=== PATIENT | female | born 1960 | race Hispanic/Latino ===

== ENCOUNTER → 2018-08-02 | Outpatient (CLI) | payer OTHER | END | disposition home or self-care (01) | LOC: OIH 13:57 | PROVIDERS: ATTEND Internal Medicine | DX: M13.862 Other specified arthritis, left knee (principal) | CPT/HCPCS: 73560 ==

== ENCOUNTER → 2020-10-01 | Outpatient (CLI) | payer OTHER ==
[~2020-10-01] VITALS: Ht 22.9 cm; Wt 140.6 kg
== END | disposition home or self-care (01) ==
LOC: DTH 10:37
PROVIDERS: ATTEND Surgery
DX: E66.01 Morbid (severe) obesity due to excess calories (principal); I10 Essential (primary) hypertension; E78.00 Pure hypercholesterolemia, unspecified; K76.0 Fatty (change of) liver, not elsewhere classified
CPT/HCPCS: 97802

== ENCOUNTER → 2020-12-20 | Outpatient (CLI) | payer OTHER | END | disposition home or self-care (01) | LOC: DTH 12:42 | PROVIDERS: ATTEND Surgery | DX: E66.01 Morbid (severe) obesity due to excess calories (principal); E78.00 Pure hypercholesterolemia, unspecified; K76.0 Fatty (change of) liver, not elsewhere classified; I10 Essential (primary) hypertension | CPT/HCPCS: 97803 ==

== ENCOUNTER 2021-02-10 08:00 | Inpatient (IN) | payer OTHER ==
[2021-02-06 10:25] VITALS: BP 152/66
[2021-02-06 10:45] LABS: BASOPHILS % (AUTO) 0.5 % (0.0-5.0); EOSINOPHILS % (AUTO) 1.2 % (0.0-8.0); HEMATOCRIT 43.1 % (36-48); LYMPHOCYTES % (AUTO) 20.7 % (21.0-51.0); MEAN CORPUSCULAR HEMOGLOBIN 30.3 pg (27.0-33.0); MEAN CORPUSCULAR HGB CONC 33.2 g/dL (32.0-36.0); MEAN CORPUSCULAR VOLUME 91.3 fL (79-99); MONOCYTES % (AUTO) 4.9 % (3.0-13.0); NEUTROPHILS % (AUTO) 72.4 % (40.0-77.0); PLATELET COUNT (AUTO) 305 K/uL (130-400); RED BLOOD CELL COUNT(AUTO) 4.72 MIL/uL (4.00-5.50); RED CELL DISTRIBUTION WIDTH 12.4 % (11.0-15.5); WHITE BLOOD COUNT (AUTO) 10.2 K/uL (4.8-10.8)
[2021-02-06 11:03] LABS: CREATININE 0.7 mg/dL (0.5-1.5); POTASSIUM 3.4 mmol/L (3.5-5.1)
[2021-02-06 11:48] LABS: INR 1.02 (0.85-1.15); PROTHROMBIN TIME 11.1 SEC (9.6-11.6)
[~2021-02-10] VITALS: Ht 144.8 cm; Wt 133.1 kg
[~2021-02-10 08:00] MED LIST: ACET650T24 PO; CHOL500051 PO; CYAN250010 PO; HYDR-4153 PO; LEVO25TA85 PO; ROSU5TAB12 PO
[2021-02-11] VITALS (24 sets, daily range): BP systolic 114–164; BP diastolic 57–85
[2021-02-11] MEDS ORDERED: CEFOXITIN SODIUM 1 GM VIAL ONE (07:25)
[2021-02-11] MEDS ORDERED: LACTATED RINGERS 1000ML 1,000 ML IV ONE (07:25)
[2021-02-11] MEDS: CEFOXITIN SODIUM 2 GM VIAL IVP SCH ×2 (07:43→08:49)
[2021-02-11] MEDS ORDERED: ROCURONIUM BROMIDE 10MG/1ML 5ML VL ONE (07:48)
[2021-02-11] MEDS ORDERED: LIDOCAINE PF 100MG/5ML (2%) SYRINGE 5ML ONE ×2 (07:48→10:13)
[2021-02-11] MEDS ORDERED: SUCCINYLCHOLINE 200MG/10ML SYR ONE (07:48)
[2021-02-11] MEDS ORDERED: FENTANYL CITRATE PF 50 MCG/1 ML 2ML VIAL ONE (07:49)
[2021-02-11] MEDS ORDERED: PROPOFOL 10 MG/ML 20ML VIAL IV ONE (07:49)
[2021-02-11] MEDS ORDERED: MEPERIDINE-PF 25 MG/ML SYG ONE ×3 (07:49→11:00)
[2021-02-11] MEDS ORDERED: BUPIVACAINE/PF 0.5% 30ML VIAL ONE (07:54)
[2021-02-11] MEDS ORDERED: GLYCOPYRROLATE 1 MG/5 ML SYRINGE ONE (08:47)
[2021-02-11] MEDS ORDERED: KETOROLAC 30MG VIAL (30MG/ML) ONE (10:02)
[2021-02-11] MEDS ORDERED: ONDANSETRON 4MG INJ ONE ×2 (10:02→10:46)
[2021-02-11] MEDS ORDERED: NEOSTIGMINE 5MG/5ML SYR IV ONE (10:12)
[2021-02-11] MEDS ORDERED: MORPHINE 5 MG/ML VIAL (5MG OR GREATER DOSE) IVP PRN (10:30)
[2021-02-11] MEDS: LACTATED RINGERS 1000ML 1,000 ML IV SCH ×2 (10:30→19:12)
[2021-02-11] MEDS: ONDANSETRON 4MG INJ IVP PRN ×2 (11:28→19:00)
[2021-02-11] MEDS ORDERED: BIOTIN PO (14:15)
[2021-02-11] MEDS ORDERED: MULT-305 PO (14:15)
[2021-02-11] MEDS: CEFAZOLIN SODIUM 1 GM VIAL IVP SCH ×2 (14:52→23:00)
[2021-02-11] MEDS ORDERED: CEFAZOLIN SODIUM 1 GM VIAL ONE (20:37)
[2021-02-11] MEDS: FAMOTIDINE 20MG VIAL IV SCH (21:03)
[2021-02-11] MEDS: ENOXAPARIN SODIUM 30 MG/0.3 ML SQ SCH (21:04)
[2021-02-11] MEDS: KETOROLAC 30MG VIAL (30MG/ML) IV PRN (21:32)
[2021-02-12 04:42] VITALS: BP 125/68
[2021-02-12 04:52] LABS: BASOPHILS % (AUTO) 0.4 % (0.0-5.0); EOSINOPHILS % (AUTO) 0.1 % (0.0-8.0); HEMATOCRIT 36.3 % (36-48); LYMPHOCYTES % (AUTO) 21.7 % (21.0-51.0); MEAN CORPUSCULAR HEMOGLOBIN 30.1 pg (27.0-33.0); MEAN CORPUSCULAR HGB CONC 33.6 g/dL (32.0-36.0); MEAN CORPUSCULAR VOLUME 89.6 fL (79-99); MONOCYTES % (AUTO) 6.2 % (3.0-13.0); NEUTROPHILS % (AUTO) 71.1 % (40.0-77.0); PLATELET COUNT (AUTO) 292 K/uL (130-400); RED BLOOD CELL COUNT(AUTO) 4.05 MIL/uL (4.00-5.50); RED CELL DISTRIBUTION WIDTH 12.6 % (11.0-15.5); WHITE BLOOD COUNT (AUTO) 10.5 K/uL (4.8-10.8)
[2021-02-12 05:07] LABS: CREATININE 0.7 mg/dL (0.5-1.5)
[2021-02-12 05:10] LABS: POTASSIUM 2.8 mmol/L (3.5-5.1)
[2021-02-12] MEDS: LACTATED RINGERS 1000ML 1,000 ML IV SCH ×3 (06:03→17:37)
[2021-02-12 08:03] VITALS: BP 141/78
[2021-02-12] MEDS ORDERED: HYDRALAZINE 25MG TABLET PO SCH (09:00)
[2021-02-12] MEDS ORDERED: LIDOCAINE HCL-MPF 1% 2ML VIAL IV PRN (10:30)
[2021-02-12 10:39] VITALS: BP 146/75
[2021-02-12] MEDS: POTASSIUM CHLORIDE 20MEQ/100ML 100 ML IV PRN ×2 (10:43→13:57)
[2021-02-12] MEDS: FAMOTIDINE 20MG VIAL IV SCH (11:06)
[2021-02-12] MEDS: ENOXAPARIN SODIUM 30 MG/0.3 ML SQ SCH (11:06)
[2021-02-12 15:24] VITALS: BP 147/90
[2021-02-12] MEDS: KETOROLAC 30MG VIAL (30MG/ML) IV PRN (18:54)
== END 2021-02-12 19:40 | disposition home or self-care (01) | DRG 621 ==
LOC: DAHIP 02-11 06:54 → 4BH 02-11 11:39
PROVIDERS: ADMIT Surgery; ATTEND Surgery
PROC: 0D164ZA Bypass Stomach to Jejunum, Percutaneous Endoscopic Approach (ICD-10-PCS; principal; 2021-02-11 08:26)
PROC: 0DJ08ZZ Inspection of Upper Intestinal Tract, Via Natural or Artificial Opening Endoscopic (ICD-10-PCS; 2021-02-11 08:26)
DX: E66.01 Morbid (severe) obesity due to excess calories (principal); Z68.44 Body mass index [BMI] 60.0-69.9, adult; Z20.822 Contact with and (suspected) exposure to COVID-19; Z88.8 Allergy status to other drugs, medicaments and biological substances
CPT/HCPCS: 36415; 43235; 71045; 80048; 84132; 85025; 85610; 85730; 86850; 86900; 86901; 87635; 93005; G0378; J0330; J0690; J0694; J1650; J1885; J2001; J2175; J2270; J2405; J2704; J2710; J3010; J3480; J3490; J7030; J7120

== ENCOUNTER 2021-05-20 06:38 | Day surgery (SDC) | payer OTHER ==
[2021-05-20] VITALS (8 sets, daily range): BP systolic 96–126; BP diastolic 50–76
[~2021-05-20] VITALS: Ht 142.2 cm; Wt 104.3 kg
[~2021-05-20 06:38] MED LIST changes: +BIOTIN PO; +MULT-305 PO
[2021-05-20] MEDS ORDERED: 0.9%NACL 1000ML 1,000 ML IV ONE (07:17)
[2021-05-20] MEDS ORDERED: PROPOFOL 10 MG/ML 20ML VIAL IV ONE (08:13)
== END 2021-05-20 08:50 | disposition home or self-care (01) ==
LOC: ENDO 06:38 → DAH 06:38 → ENDO 08:50
PROVIDERS: ATTEND Surgery
DX: R13.10 Dysphagia, unspecified (principal); K21.9 Gastro-esophageal reflux disease without esophagitis; I10 Essential (primary) hypertension; E03.9 Hypothyroidism, unspecified; M19.90 Unspecified osteoarthritis, unspecified site; Z98.84 Bariatric surgery status; Z79.899 Other long term (current) drug therapy; Z20.822 Contact with and (suspected) exposure to COVID-19
CPT/HCPCS: 43239; 87635; 88305; 88342; A4215 ×2; A4221; A4222; A4223; A4606; A4620; A4663; C9803; J2704; J7030

== ENCOUNTER 2022-11-16 10:24 | Inpatient (IN) | payer OTHER, MEDICARE ==
[~2022-11-16] VITALS: Ht 144.8 cm; Wt 72.8 kg
[~2022-11-16 10:24] MED LIST changes: -ACET650T24 PO; +CEPH500C2 PO; -HYDR-4153 PO; +HYDR25TA PO; +KETO10 PO; -MULT-305 PO; +MV-M1TAB57 PO; +OMEP40CA21 PO; +TAMS-1 PO
[2022-11-16 10:57] LABS: SARS-CoV-2, RNA, NAAT NEGATIVE SARS CoV-2 (NEGATIVE)
[2022-11-16 11:22] LABS: INFLUENZA TYPE A Negative For Type A (NEGATIVE); INFLUENZA TYPE B Negative For Type B (NEGATIVE)
[2022-11-16 11:44] LABS: BASOPHILS # (AUTO) 0.05 K/uL (0.00-0.20); BASOPHILS % (AUTO) 0.9 % (0.0-5.0); EOSINOPHILS % (AUTO) 1.7 % (0.0-8.0); HEMATOCRIT 39.3 % (36-48); IMMATURE GRANULOCYTE ABSOLUTE 0.01 K/uL (0-1); LYMPHOCYTES # (AUTO) 1.8 K/uL (1.0-4.8); LYMPHOCYTES % (AUTO) 31.5 % (21.0-51.0); MEAN CORPUSCULAR HEMOGLOBIN 31.6 pg (27.0-33.0); MEAN CORPUSCULAR HGB CONC 34.1 g/dL (32.0-36.0); MEAN CORPUSCULAR VOLUME 92.7 fL (79-99); MONOCYTES # (AUTO) 0.4 K/uL (0.1-1.0); MONOCYTES % (AUTO) 7.2 % (3.0-13.0); NEUTROPHILS # (AUTO) 3.4 K/uL (1.8-7.7); NEUTROPHILS % (AUTO) 58.5 % (40.0-77.0); PLATELET COUNT (AUTO) 270 K/uL (130-400); RED BLOOD CELL COUNT(AUTO) 4.24 MIL/uL (4.00-5.50); RED CELL DISTRIBUTION WIDTH 12.1 % (11.0-15.5); WHITE BLOOD COUNT (AUTO) 5.8 K/uL (4.8-10.8)
[2022-11-16 11:54] LABS: CREATININE 0.7 mg/dL (0.5-1.5); POTASSIUM 3.5 mmol/L (3.5-5.1)
[2022-11-16 11:59] LABS: ALBUMIN 3.6 g/dL (3.5-5.0); BILIRUBIN,TOTAL 0.5 mg/dL (0.2-1.0); TOTAL PROTEIN, SERUM 7.6 g/dL (6.0-8.3)
[2022-11-16 12:07] LABS: CREATINE KINASE, TOTAL 52 U/L (21-232); MYOGLOBIN 26 ng/mL (10-92)
[2022-11-16 13:34] LABS: APPEARANCE,URINE CLEAR (CLEAR); BILIRUBIN,URINE NEGATIVE (NEGATIVE); COLOR,URINE YELLOW (YELLOW); GLUCOSE, URINE (UA) NEGATIVE (NEGATIVE); KETONES,URINE NEGATIVE (NEGATIVE); LEUKOCYTE ESTERASE ,URINE NEGATIVE Leu/uL (NEGATIVE); NITRATE,URINE NEGATIVE (NEGATIVE); OCCULT BLOOD,URINE NEGATIVE (NEGATIVE); PH,URINE 5.5 (5.0-8.0); PROTEIN,URINE NEGATIVE (NEGATIVE); UROBILINOGEN,URINE 0.2 mg/dL (0.2-1.0)
[2022-11-16 13:35] LABS: ADD UA MICROSCOPIC NO
[2022-11-16] MEDS ORDERED: IOHEXOL-350 75 ML VIAL IV ONE (14:54)
[2022-11-16] MEDS ORDERED: METOCLOPRAMIDE 10 MG/2 ML VIAL IVP ONE (15:00)
[2022-11-16] MEDS ORDERED: MORPHINE 4 MG SYG IVP ONE (15:00)
[2022-11-16] MEDS ORDERED: 0.9%NACL 1000ML 1,000 ML IV ONE ×2 (15:00→16:00)
[2022-11-16] MEDS ORDERED: MAG/ALUM/SIMETH 30 ML UDCUP PO ONE (15:00)
[2022-11-16] MEDS ORDERED: LIDOCAINE HCL 2% VISCOUS 15 ML UDCUP PO ONE (15:00)
[2022-11-16] MEDS ORDERED: DICYCLOMINE HCL 10 MG/5 ML ML PO ONE (15:00)
[2022-11-16] MEDS ORDERED: FAMOTIDINE 20MG VIAL IV ONE (15:00)
[2022-11-16] MEDS ORDERED: ZOSYN 3.375GM +NS 50ML IVPB ONE (16:00)
[2022-11-16] MEDS ORDERED: POTASSIUM CHLORIDE 20MEQ/100ML 100 ML IV PRN ×2 (17:00)
[2022-11-16] MEDS ORDERED: ALPRAZOLAM 0.5 MG TABLET PO PRN (17:00)
[2022-11-16] MEDS ORDERED: GLUCAGON 1MG KIT 1 MG ML IM PRN (17:00)
[2022-11-16] MEDS ORDERED: ACETAMINOPHEN 325 MG TAB PO PRN ×2 (17:00)
[2022-11-16] MEDS ORDERED: DEXTROSE 50%-WATER 50 ML DISP.SYRIN IV PRN (17:00)
[2022-11-16] MEDS ORDERED: POTASSIUM CHLORIDE 10% ELIXIR 20 MEQ/15 ML UDCUP PO PRN (17:00)
[2022-11-16] MEDS ORDERED: GUAIFENESIN-DM 200/20 MG 10 ML PO PRN (17:00)
[2022-11-16] MEDS ORDERED: NITROGLYCERIN 0.4 MG SL TAB SL PRN (17:00)
[2022-11-16] MEDS ORDERED: HYDRALAZINE 25MG TABLET PO PRN (17:00)
[2022-11-16] MEDS ORDERED: ZOLPIDEM TARTRATE 5 MG TAB PO PRN (17:00)
[2022-11-16] MEDS ORDERED: POLYETHYLENE GLYCOL 3350 17 GM POWD.PACK PO PRN (17:00)
[2022-11-16] MEDS ORDERED: ONDANSETRON 4MG INJ IV PRN (17:00)
[2022-11-16] MEDS: METOCLOPRAMIDE 10 MG/2 ML VIAL IVP SCH (17:00)
[2022-11-16] MEDS ORDERED: DOCUSATE SODIUM 100 MG CAP PO PRN (17:00)
[2022-11-16] MEDS ORDERED: GUAIFENESIN SUGAR-FREE 100 MG/5 ML UDCUP PO PRN (17:00)
[2022-11-16] MEDS ORDERED: DiphenhydrAMINE HCL 50 MG/ML VIAL IV PRN (17:00)
[2022-11-16] MEDS ORDERED: ALBUTEROL 0.083% 2.5 MG/3 ML INH IH PRN (17:00)
[2022-11-16] MEDS ORDERED: MAG/ALUM/SIMETH 30 ML UDCUP PO PRN (17:00)
[2022-11-16] MEDS ORDERED: LACTULOSE 20 GM/30 ML UDCUP PO PRN (17:00)
[2022-11-16] MEDS ORDERED: KCL 20 MEQ ERTAB PO PRN (17:00)
[2022-11-16] MEDS: 0.9%NACL 1000ML 1,000 ML IV SCH (17:33)
[2022-11-16] MEDS: FAMOTIDINE 20MG VIAL IV SCH (21:00)
[2022-11-17] VITALS (8 sets, daily range): BP systolic 120–162; BP diastolic 59–92; PULSE 60–68; RESP 16–20; O2SAT 95–98
[2022-11-17] MEDS: 0.9%NACL 1000ML 1,000 ML IV SCH ×3 (02:56→23:00)
[2022-11-17] MEDS: METOCLOPRAMIDE 10 MG/2 ML VIAL IVP SCH ×3 (02:56→17:47)
[2022-11-17 05:00] LABS: BASOPHILS # (AUTO) 0.03 K/uL (0.00-0.20); BASOPHILS % (AUTO) 0.5 % (0.0-5.0); EOSINOPHILS # (AUTO) 0.11 K/uL (0.00-0.70); EOSINOPHILS % (AUTO) 1.8 % (0.0-8.0); HEMATOCRIT 34.7 % (36-48); IMMATURE GRANULOCYTE ABSOLUTE 0.02 K/uL (0-1); LYMPHOCYTES # (AUTO) 1.4 K/uL (1.0-4.8); LYMPHOCYTES % (AUTO) 22.9 % (21.0-51.0); MEAN CORPUSCULAR HEMOGLOBIN 30.9 pg (27.0-33.0); MEAN CORPUSCULAR HGB CONC 33.4 g/dL (32.0-36.0); MEAN CORPUSCULAR VOLUME 92.5 fL (79-99); MONOCYTES # (AUTO) 0.5 K/uL (0.1-1.0); MONOCYTES % (AUTO) 7.8 % (3.0-13.0); NEUTROPHILS % (AUTO) 66.7 % (40.0-77.0); PLATELET COUNT (AUTO) 232 K/uL (130-400); RED BLOOD CELL COUNT(AUTO) 3.75 MIL/uL (4.00-5.50); RED CELL DISTRIBUTION WIDTH 11.9 % (11.0-15.5)
[2022-11-17 05:18] LABS: BILIRUBIN,TOTAL 0.4 mg/dL (0.2-1.0); CREATININE 0.7 mg/dL (0.5-1.5); MAGNESIUM 1.9 mg/dL (1.80-2.40); POTASSIUM 3.5 mmol/L (3.5-5.1); TOTAL PROTEIN, SERUM 6.5 g/dL (6.0-8.3)
[2022-11-17] MEDS: MAGNESIUM 2GM PREMIX 50ML 50 ML IV PRN (05:47)
[2022-11-17] MEDS: LEVOTHYROXINE 25 MCG TABLET PO SCH (06:30)
[2022-11-17] MEDS: ENOXAPARIN SODIUM 30 MG/0.3 ML SQ SCH (09:00)
[2022-11-17] MEDS ORDERED: [UNRECOGNIZED DRUG - CODE] PO (09:22)
[2022-11-17] MEDS ORDERED: ROSU5TAB12 PO (09:22)
[2022-11-17] MEDS: FAMOTIDINE 20MG VIAL IV SCH ×2 (09:26→19:49)
[2022-11-17] MEDS ORDERED: LIDOCAINE PF 100MG/5ML (2%) SYRINGE 5ML ONE (14:22)
[2022-11-17] MEDS ORDERED: SUCCINYLCHOLINE 200MG/10ML SYR ONE (14:22)
[2022-11-17] MEDS ORDERED: MIDAZOLAM HCL 1 MG/ML 2ML VIAL ONE (14:23)
[2022-11-17] MEDS ORDERED: PROPOFOL 10 MG/ML 20ML VIAL IV ONE (14:23)
[2022-11-17] MEDS ORDERED: FENTANYL CITRATE PF 50 MCG/1 ML 2ML VIAL ONE (14:23)
[2022-11-17] MEDS ORDERED: ROCURONIUM BROMIDE 10MG/1ML 5ML VL ONE (14:33)
[2022-11-17] MEDS ORDERED: ROPIVACAINE 0.5% 5MG/ML 30ML IJ ONE (14:33)
[2022-11-17] MEDS: ATORVASTATIN 10 MG TABLET PO SCH (19:49)
[2022-11-17] MEDS ORDERED: NON-FORMULARY MEDICATION 1 EACH (Rosuvastatin Calcium 5 MG) PO SCH (21:00)
[2022-11-18] VITALS (25 sets, daily range): BP systolic 114–169; BP diastolic 60–89; PULSE 49–60; RESP 11–20; O2SAT 99–100
[2022-11-18] MEDS: METOCLOPRAMIDE 10 MG/2 ML VIAL IVP SCH ×3 (01:05→18:43)
[2022-11-18 05:20] LABS: BASOPHILS # (AUTO) 0.03 K/uL (0.00-0.20); BASOPHILS % (AUTO) 0.8 % (0.0-5.0); EOSINOPHILS # (AUTO) 0.14 K/uL (0.00-0.70); EOSINOPHILS % (AUTO) 3.5 % (0.0-8.0); HEMATOCRIT 33.8 % (36-48); IMMATURE GRANULOCYTE ABSOLUTE 0.04 K/uL (0-1); LYMPHOCYTES # (AUTO) 1.5 K/uL (1.0-4.8); LYMPHOCYTES % (AUTO) 38.4 % (21.0-51.0); MEAN CORPUSCULAR HEMOGLOBIN 31.1 pg (27.0-33.0); MEAN CORPUSCULAR HGB CONC 33.4 g/dL (32.0-36.0); MEAN CORPUSCULAR VOLUME 93.1 fL (79-99); MONOCYTES # (AUTO) 0.4 K/uL (0.1-1.0); MONOCYTES % (AUTO) 9.3 % (3.0-13.0); NEUTROPHILS # (AUTO) 1.9 K/uL (1.8-7.7); PLATELET COUNT (AUTO) 202 K/uL (130-400); RED BLOOD CELL COUNT(AUTO) 3.63 MIL/uL (4.00-5.50); RED CELL DISTRIBUTION WIDTH 11.9 % (11.0-15.5)
[2022-11-18] MEDS: LEVOTHYROXINE 25 MCG TABLET PO SCH (05:29)
[2022-11-18 06:05] LABS: ALBUMIN 2.7 g/dL (3.5-5.0); BILIRUBIN,TOTAL 0.4 mg/dL (0.2-1.0); CREATININE 0.5 mg/dL (0.5-1.5); MAGNESIUM 2.1 mg/dL (1.80-2.40); POTASSIUM 3.7 mmol/L (3.5-5.1); TOTAL PROTEIN, SERUM 6.2 g/dL (6.0-8.3)
[2022-11-18] MEDS: PANTOPRAZOLE 40 MG TAB DR PO SCH (06:37)
[2022-11-18] MEDS ORDERED: NON-FORMULARY MEDICATION 1 EACH (Omeprazole 40 MG) PO SCH (07:30)
[2022-11-18] MEDS ORDERED: CYANOCOBALAMIN 3000 MCG PO SCH (09:00)
[2022-11-18] MEDS: ENOXAPARIN SODIUM 30 MG/0.3 ML SQ SCH (09:00)
[2022-11-18] MEDS: HYDROCHLOROTHIAZIDE 25 MG TABLET PO SCH (09:04)
[2022-11-18] MEDS: FAMOTIDINE 20MG VIAL IV SCH ×2 (09:04→19:25)
[2022-11-18] MEDS: CYANOCOBALAMIN (VITAMIN B-12) 1,000 MCG TABLET PO SCH (09:04)
[2022-11-18] MEDS: MV MN PO SCH (09:06)
[2022-11-18] MEDS: CALCIUM PO SCH (09:06)
[2022-11-18] MEDS: VIT K PO SCH (09:06)
[2022-11-18] MEDS: 0.9%NACL 1000ML 1,000 ML IV SCH ×2 (09:06→18:46)
[2022-11-18] MEDS: FOLIC ACID PO SCH (09:06)
[2022-11-18] MEDS ORDERED: LIDOCAINE PF 100MG/5ML (2%) SYRINGE 5ML ONE (15:42)
[2022-11-18] MEDS ORDERED: PROPOFOL 10 MG/ML 20ML VIAL IV ONE (15:42)
[2022-11-18] MEDS ORDERED: SUCCINYLCHOLINE CHLORIDE 20 MG/ML 10 ML VIAL ONE (15:42)
[2022-11-18] MEDS ORDERED: ROCURONIUM 10MG/1ML SYR 10 MG/ML ML ONE (15:42)
[2022-11-18] MEDS ORDERED: FENTANYL CITRATE PF 50 MCG/1 ML 2ML VIAL ONE (15:42)
[2022-11-18] MEDS ORDERED: MIDAZOLAM HCL 1 MG/ML 2ML VIAL ONE (15:42)
[2022-11-18] MEDS ORDERED: CEFAZOLIN SODIUM 2 GM VIAL ONE (15:42)
[2022-11-18] MEDS ORDERED: ONDANSETRON 4MG INJ ONE ×2 (16:13→16:48)
[2022-11-18] MEDS ORDERED: SUGAMMADEX SODIUM 200 MG/2 ML VIAL IV ONE (16:24)
[2022-11-18] MEDS ORDERED: MEPERIDINE-PF 25 MG/ML SYG ONE ×2 (16:48→17:02)
[2022-11-18] MEDS ORDERED: KETOROLAC 30MG VIAL (30MG/ML) ONE (17:02)
[2022-11-18] MEDS: ATORVASTATIN 10 MG TABLET PO SCH (19:25)
[2022-11-19] MEDS: METOCLOPRAMIDE 10 MG/2 ML VIAL IVP SCH ×2 (01:27→08:18)
[2022-11-19 03:45] VITALS: BP 133/81; PULSE 52; RESP 18
[2022-11-19 04:47] LABS: BASOPHILS # (AUTO) 0.04 K/uL (0.00-0.20); BASOPHILS % (AUTO) 0.8 % (0.0-5.0); EOSINOPHILS # (AUTO) 0.14 K/uL (0.00-0.70); EOSINOPHILS % (AUTO) 2.8 % (0.0-8.0); HEMATOCRIT 34.5 % (36-48); IMMATURE GRANULOCYTE ABSOLUTE 0.01 K/uL (0-1); LYMPHOCYTES # (AUTO) 1.6 K/uL (1.0-4.8); LYMPHOCYTES % (AUTO) 31.4 % (21.0-51.0); MEAN CORPUSCULAR HGB CONC 33.6 g/dL (32.0-36.0); MEAN CORPUSCULAR VOLUME 92.2 fL (79-99); MONOCYTES # (AUTO) 0.4 K/uL (0.1-1.0); MONOCYTES % (AUTO) 8.4 % (3.0-13.0); NEUTROPHILS # (AUTO) 2.9 K/uL (1.8-7.7); NEUTROPHILS % (AUTO) 56.4 % (40.0-77.0); PLATELET COUNT (AUTO) 200 K/uL (130-400); RED BLOOD CELL COUNT(AUTO) 3.74 MIL/uL (4.00-5.50); RED CELL DISTRIBUTION WIDTH 11.8 % (11.0-15.5); WHITE BLOOD COUNT (AUTO) 5.1 K/uL (4.8-10.8)
[2022-11-19] MEDS: 0.9%NACL 1000ML 1,000 ML IV SCH (05:07)
[2022-11-19 05:11] LABS: ALBUMIN 2.8 g/dL (3.5-5.0); BILIRUBIN,TOTAL 0.5 mg/dL (0.2-1.0); CREATININE 0.5 mg/dL (0.5-1.5); MAGNESIUM 1.8 mg/dL (1.80-2.40); POTASSIUM 3.9 mmol/L (3.5-5.1); TOTAL PROTEIN, SERUM 6.4 g/dL (6.0-8.3)
[2022-11-19] MEDS: LEVOTHYROXINE 25 MCG TABLET PO SCH (05:28)
[2022-11-19] MEDS: MAGNESIUM 2GM PREMIX 50ML 50 ML IV PRN (05:29)
[2022-11-19] MEDS: PANTOPRAZOLE 40 MG TAB DR PO SCH (07:30)
[2022-11-19 08:00] VITALS: O2SAT 99
[2022-11-19 08:09] VITALS: BP 117/70; PULSE 50; RESP 16
[2022-11-19] MEDS: HYDROCHLOROTHIAZIDE 25 MG TABLET PO SCH (08:18)
[2022-11-19] MEDS: FAMOTIDINE 20MG VIAL IV SCH (08:18)
[2022-11-19] MEDS: CYANOCOBALAMIN (VITAMIN B-12) 1,000 MCG TABLET PO SCH (08:19)
[2022-11-19] MEDS: ENOXAPARIN SODIUM 30 MG/0.3 ML SQ SCH (08:20)
[2022-11-19] MEDS: CALCIUM PO SCH (09:00)
[2022-11-19] MEDS: VIT K PO SCH (09:00)
[2022-11-19] MEDS: MV MN PO SCH (09:00)
[2022-11-19] MEDS: FOLIC ACID PO SCH (09:00)
[2022-11-19 12:01] VITALS: BP 136/72; PULSE 56; RESP 18
== END 2022-11-19 14:05 | disposition home or self-care (01) | DRG 336 ==
LOC: EDH 10:24 → OBSVTOIN 16:56 → EDHIP 16:56 → 4DH 11-17 02:19
PROVIDERS: ADMIT Internal Medicine Critical Care Medicine; ATTEND Internal Medicine Critical Care Medicine
PROC: 0DNW4ZZ Release Peritoneum, Percutaneous Endoscopic Approach (ICD-10-PCS; principal; 2022-11-18 15:46)
DX: K56.50 Intestinal adhesions [bands], unspecified as to partial versus complete obstruction (principal); K95.89 Other complications of other bariatric procedure; K29.70 Gastritis, unspecified, without bleeding; K42.9 Umbilical hernia without obstruction or gangrene; E78.00 Pure hypercholesterolemia, unspecified; E03.9 Hypothyroidism, unspecified; I10 Essential (primary) hypertension; Z98.84 Bariatric surgery status; Z20.822 Contact with and (suspected) exposure to COVID-19
CPT/HCPCS: 36415; 71045; 74018; 74178; 80053; 81003; 82550; 83605; 83690; 83735; 83874; 84484; 85025; 87635; 87804; 93005; C9803; G0378; J0330; J1650; J1885; J2001; J2175; J2250; J2270; J2405; J2543; J2704; J2765; J2795; J3010; J3475; J3480; J3490; J7030; Q9967; A4216; A4222; A4223; A4600; J0690

== ENCOUNTER 2023-07-21 17:08 | Emergency (ER) | payer OTHER, MEDICARE ==
[~2023-07-21] VITALS: Ht 144.8 cm; Wt 79.4 kg
[~2023-07-21 17:08] MED LIST changes: -BIOTIN PO; -CEPH500C2 PO; -KETO10 PO; -TAMS-1 PO; +[UNRECOGNIZED DRUG - CODE] PO
[2023-07-21 18:16] LABS: BASOPHILS # (AUTO) 0.05 K/uL (0.00-0.20); BASOPHILS % (AUTO) 0.8 % (0.0-5.0); EOSINOPHILS # (AUTO) 0.15 K/uL (0.00-0.70); EOSINOPHILS % (AUTO) 2.3 % (0.0-8.0); IMMATURE GRANULOCYTE ABSOLUTE 0.01 K/uL (0-1); LYMPHOCYTES # (AUTO) 2.3 K/uL (1.0-4.8); MEAN CORPUSCULAR HEMOGLOBIN 31.3 pg (27.0-33.0); MEAN CORPUSCULAR HGB CONC 33.6 g/dL (32.0-36.0); MEAN CORPUSCULAR VOLUME 93.3 fL (79-99); MONOCYTES # (AUTO) 0.4 K/uL (0.1-1.0); MONOCYTES % (AUTO) 6.8 % (3.0-13.0); NEUTROPHILS # (AUTO) 3.6 K/uL (1.8-7.7); NEUTROPHILS % (AUTO) 54.9 % (40.0-77.0); PLATELET COUNT (AUTO) 252 K/uL (130-400); RED CELL DISTRIBUTION WIDTH 11.9 % (11.0-15.5); WHITE BLOOD COUNT (AUTO) 6.5 K/uL (4.8-10.8)
[2023-07-21 18:25] LABS: APPEARANCE,URINE CLEAR (CLEAR); BILIRUBIN,URINE NEGATIVE (NEGATIVE); COLOR,URINE LIGHT-YELLOW (YELLOW); GLUCOSE, URINE (UA) NEGATIVE (NEGATIVE); KETONES,URINE NEGATIVE (NEGATIVE); LEUKOCYTE ESTERASE ,URINE NEGATIVE Leu/uL (NEGATIVE); NITRATE,URINE NEGATIVE (NEGATIVE); OCCULT BLOOD,URINE NEGATIVE (NEGATIVE); PROTEIN,URINE NEGATIVE (NEGATIVE); UROBILINOGEN,URINE 0.2 mg/dL (0.2-1.0)
[2023-07-21 18:36] LABS: ADD UA MICROSCOPIC NO
[2023-07-21 19:19] LABS: ALBUMIN 3.7 g/dL (3.5-5.0); BILIRUBIN,TOTAL 0.3 mg/dL (0.2-1.0); CREATININE 0.7 mg/dL (0.5-1.0); POTASSIUM 3.8 mmol/L (3.5-5.1); TOTAL PROTEIN, SERUM 7.7 g/dL (6.0-8.3)
[2023-07-21] MEDS: ONDANSETRON 4MG INJ IVP ONE (19:23)
[2023-07-21] MEDS: METOCLOPRAMIDE 10 MG/2 ML VIAL IVP ONE (19:23)
[2023-07-21] MEDS: FAMOTIDINE 20MG VIAL IV ONE (19:24)
[2023-07-21] MEDS: 0.9%NACL 1000ML 1,000 ML IV ONE (19:24)
[2023-07-21] MEDS ORDERED: FAMO20TA8 PO (20:41)
[2023-07-21 20:54] VITALS: BP 133/69; PULSE 71; RESP 18; O2SAT 98
== END 2023-07-21 20:54 | disposition home or self-care (01) ==
LOC: EDH 17:10
DX: K29.00 Acute gastritis without bleeding (principal); I10 Essential (primary) hypertension; E78.00 Pure hypercholesterolemia, unspecified; Z90.49 Acquired absence of other specified parts of digestive tract; Z79.899 Other long term (current) drug therapy; Z98.890 Other specified postprocedural states; Z88.8 Allergy status to other drugs, medicaments and biological substances
CPT/HCPCS: 99284; 96374; 96375; 96361; 80053; 85025; 81003; 36415; J3490; J7030; J2405; J2765

== ENCOUNTER → 2024-04-25 | Outpatient (CLI) | payer OTHER, MEDICARE ==
[~2024-04-25] MED LIST changes: +FAMO20TA8 PO; -ROSU5TAB12 PO; +ROSU5TAB51 PO
[2024-04-25 12:24] LABS: BASOPHILS # (AUTO) 0.05 K/uL (0.00-0.20); BASOPHILS % (AUTO) 1.1 % (0.0-5.0); EOSINOPHILS # (AUTO) 0.36 K/uL (0.00-0.70); HEMATOCRIT 41.3 % (36-48); LYMPHOCYTES # (AUTO) 1.5 K/uL (1.0-4.8); LYMPHOCYTES % (AUTO) 32.8 % (21.0-51.0); MEAN CORPUSCULAR HGB CONC 32.4 g/dL (32.0-36.0); MEAN CORPUSCULAR VOLUME 95.6 fL (79-99); MONOCYTES # (AUTO) 0.4 K/uL (0.1-1.0); MONOCYTES % (AUTO) 8.4 % (3.0-13.0); NEUTROPHILS # (AUTO) 2.2 K/uL (1.8-7.7); NEUTROPHILS % (AUTO) 49.7 % (40.0-77.0); PLATELET COUNT (AUTO) 270 K/uL (130-400); RED BLOOD CELL COUNT(AUTO) 4.32 MIL/uL (4.00-5.50); RED CELL DISTRIBUTION WIDTH 12.3 % (11.0-15.5); WHITE BLOOD COUNT (AUTO) 4.5 K/uL (4.8-10.8)
[2024-04-25 12:41] LABS: ALBUMIN 3.5 g/dL (3.5-5.0); BILIRUBIN,TOTAL 0.3 mg/dL (0.2-1.0); CREATININE 0.5 mg/dL (0.5-1.0); POTASSIUM 4.6 mmol/L (3.5-5.1); TOTAL PROTEIN, SERUM 7.5 g/dL (6.0-8.3)
== END | disposition home or self-care (01) ==
LOC: LAB 08:07
PROVIDERS: ATTEND Internal Medicine Cardiovascular Disease
DX: R42 Dizziness and giddiness (principal); R55 Syncope and collapse; E66.9 Obesity, unspecified; R06.00 Dyspnea, unspecified
CPT/HCPCS: 36415; 80053; 80061; 83497; 85025

== ENCOUNTER → 2024-09-07 | Outpatient (CLI) | payer OTHER, MEDICAID ==
[~2024-09-07] MED LIST changes: +DIATR MEGLU/DIATRIZOATE SODIUM 30 ML BOTTLE ONE
--- NOTE | 2024-09-07 12:30 | HMCIMG ---
UPPER GI TRACT, WO KUB REASON: Gastro-esophageal reflux disease without esophagitis. COMPARISON: None TECHNIQUE: Gastrografin upper GI series study was performed. FINDINGS: There is no obstruction to the antegrade passage of barium from mouth through jejunum. No evidence of hiatal hernia is seen. Minimal gastroesophageal reflux is seen to level of the distal thoracic esophagus. Post gastric surgical changes are seen. Stomach is not well visualized due to postop changes. IMPRESSION: Post gastric surgical changes. Minimal gastroesophageal reflux to the level of distal thoracic esophagus. No obstruction is seen.
== END | disposition home or self-care (01) ==
LOC: RAH 08:44
PROVIDERS: ATTEND Student in an Organized Health Care Education/Training Program
DX: K21.9 Gastro-esophageal reflux disease without esophagitis (principal); Z98.890 Other specified postprocedural states
CPT/HCPCS: 74240; Q9963

== ENCOUNTER 2024-11-12 10:52 | Emergency (ER) | payer OTHER, MEDICARE ==
[~2024-11-12] VITALS: Ht 144.8 cm; Wt 85.7 kg
[~2024-11-12 10:52] MED LIST changes: -DIATR MEGLU/DIATRIZOATE SODIUM 30 ML BOTTLE ONE
[2024-11-12 11:19] LABS: IMMATURE GRANULOCYTE ABSOLUTE 0.02 K/uL (0-1); NUCLEATED RED BLOOD CELLS 0.0 % (0.0-0.19); PLATELET COUNT (AUTO) 295 K/uL (130-400); RED BLOOD CELL COUNT(AUTO) 4.46 MIL/uL (4.00-5.50); RED CELL DISTRIBUTION WIDTH 12.2 % (11.0-15.5); WHITE BLOOD COUNT (AUTO) 7.4 K/uL (4.8-10.8)
[2024-11-12 11:23] LABS: CREATININE 0.6 mg/dL (0.5-1.0); GLOMERULAR FILTR. RATE CALC 101.0 mL/min (>90); GLUCOSE,RANDOM 95.0 mg/dL (70-105); SODIUM SERUM 141.0 mmol/L (136-145); UREA NITROGEN, BLOOD 15.0 mg/dL (7-18)
[2024-11-12 11:31] LABS: CREATINE KINASE, TOTAL 49.0 U/L (21-232)
[2024-11-12] MEDS: LACTATED RINGERS 1000ML 1,000 ML IV ONE (11:31)
--- NOTE | 2024-11-12 11:33 | EKG ---
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
[2024-11-12 11:34] LABS: APPEARANCE,URINE CLEAR (CLEAR); GLUCOSE, URINE (UA) NEGATIVE (NEGATIVE); LEUKOCYTE ESTERASE ,URINE NEGATIVE Leu/uL (NEGATIVE); NITRATE,URINE NEGATIVE (NEGATIVE); OCCULT BLOOD,URINE NEGATIVE (NEGATIVE)
[2024-11-12 11:39] LABS: ADD UA MICROSCOPIC YES
[2024-11-12 11:41] LABS: SQUAMOUS EPITHELIAL CELL,UR MOD /HPF (0-2)
[2024-11-12 12:45] LABS: ASPARTATE AMINOTRANSFERASE 19.0 U/L (10-37); TOTAL PROTEIN, SERUM 7.5 g/dL (6.0-8.3)
--- NOTE | 2024-11-12 12:46 | HMCIMG ---
EXAM: CR Chest, 1 View. CLINICAL HISTORY: dizzy COMPARISON: 11/16/2022 FINDINGS: LUNGS: The lungs show no infiltrate or other acute finding. PLEURAL SPACES: No pleural effusion or pneumothorax. MEDIASTINUM: Cardiac size and mediastinal contours within normal limits. BONES: No acute osseous abnormality. IMPRESSION: No acute cardiopulmonary pathology is evident. /Josephine
--- NOTE | 2024-11-12 13:32 | HMCIMG ---
EXAM: CT Head Without IV contrast. CLINICAL HISTORY: dizzy TECHNIQUE: Axial computed tomography images of the head/brain without intravenous contrast. COMPARISON: None provided. FINDINGS: BRAIN: Prominence of cerebral sulci and ventricles suggestive of age-related atrophic changes.No evidence of acute hemorrhage. No mass lesion. No CT evidence for acute territorial infarct. No midline shift or extra-axial collections. VENTRICLES: No hydrocephalus. ORBITS: The orbits are unremarkable. SINUSES AND MASTOIDS: The paranasal sinuses and mastoid air cells are clear. BONES: No fracture. SOFT TISSUES: Unremarkable. IMPRESSION: 1. No acute intracranial findings. /[place]
[2024-11-12] MEDS ORDERED: FIORIT PO (13:45)
--- NOTE | 2024-11-12 13:45 | ERN ---
General Chief Complaint: Hypertension Stated Complaint: HIGH BLOOD PRESSURE YESTERDAY Time Seen by MD: 10:57 History of Present Illness Initial Comments 64-year-old female history of hypertension dyslipidemia hypothyroidism history of gastric bypass presents for headache on and off for two weeks. Patient reports a headache that has been going on and off for two weeks. She reports some blurry vision at times. She went to her PCP and was told she had hypertension was started on losartan. Her pressure has improved but she still continues with the headaches. No focal neurologic deficits. She reports she has been nauseous and had decreased oral intake recently. She reports she had gastric bypass in the past, but over the last few months he has been gaining more weight so she started on phentermine for the last couple of months. No diarrhea. No fevers. No chest pain or dyspnea. Allergies: Coded Allergies: No Known Drug Allergies (Unverified Allergy, Unknown, 12/27/16) Uncoded Allergies: STEROID - UNKNOWN (Allergy, Unknown, SWELLING, 02/07/21) Home Meds Active Scripts Famotidine (Famotidine) 20 Mg Tablet, 20 MG PO BID for 14 Days, #28 TAB Prov:RUPA GARCIA VIOLIN RESTORER 07/21/23 Reported Medications Rosuvastatin Calcium (Rosuvastatin Calcium) 5 Mg Tablet, 5 MG PO HS, TAB 11/17/22 Biotin (Biotin) 2,500 Mcg Tab.chew, 2500 MCG PO DAILY, TAB.CHEW 11/17/22 Mv-Mn/Folic Acid/Calcium/Vit K (Women's 50 Plus Multivit Tab) 1 Each Tablet, 1 EACH PO AM, TAB 04/16/22 Hydrochlorothiazide (Hydrochlorothiazide) 25 Mg Tablet, 25 MG PO AM, TAB 04/16/22 Omeprazole (Omeprazole) 40 Mg Capsule.dr, 40 MG PO ACBKFST, CAP 04/16/22 Cyanocobalamin (Vitamin B-12) (Vitamin B12) 2,500 Mcg Tablet, 3000 MCG PO AM, TAB 02/07/21 Cholecalciferol (Vitamin D3) (Vitamin D3) 125 Mcg Capsule, 125 MCG PO AM, CAP 02/07/21 Levothyroxine Sodium (Euthyrox) 25 Mcg Tablet, 25 MCG PO AM, TAB 02/07/21 Past Medical History Past Medical History: High Cholesterol, Hypertension Medical History Other: THYROID Past Surgical History: Appendectomy, Other, BTL, Bariatric Surgery Surgical History Other: BILATERAL KNEE Family History Family History: Negative Social History Social History: Negative, Lives with family Female( History) History: Not Applicable ROS Dictation CONSTITUTIONAL: No chills, no fever, no weakness, no diaphoresis, no malaise. HEAD/FACE: No signs of trauma. EENT: No eye pain, no blurred vision, no tearing, no double vision, no ear pain, no ear discharge, no nose pain, no nasal congestion, no throat pain, no throat swelling, no mouth pain. RESPIRATORY: No cough, no orthopnea, no SOB, no stridor, no wheezing. CARDIOVASCULAR: No chest pain, no edema, no palpitations, no syncope. GASTROINTESTINAL/ABDOMINAL: No abdominal pain, no constipation, no diarrhea, no nausea, no vomiting. GENITOURINARY: No abnormal discharge, no dysuria, no frequent urination, no hematuria. No complaints of pain in the genitals. MUSCULOSKELETAL: No back pain, no gout, no joint pain, no joint swelling, no muscle pain, no muscle stiffness, no neck pain. INTEGUMENTARY: No change in color, no change in hair/nails, no dryness, no lesion, no lumps, no rash. NEUROLOGICAL/PSYCH: Headache HEMATOLOGIC/LYMPHATIC: Not anemic, no history of blood clots, no apparent bleeding, no bruising, glands not swollen. All Systems Negative, Except as Noted. Physical Exam Physical Exam Dictation VITAL SIGNS: Reviewed. GENERAL APPEARANCE: Alert, oriented x3, no acute distress, obese. HEAD AND FACE: Non-traumatic. EYES: PERRL, pink conjunctivas, eyelid no trauma, anterior chamber clear. EARS: Pinnas intact and no signs of trauma or erythema. Ear canals clear and no discharge. TMs no erythema. NOSE: No discharge, no bleeding. OROPHARYNX: Mouth normal, teeth no caries, tongue pink. Pharynx clear, no erythema. Tonsils no exudates, no abscesses noted. Mucous membrane moist. NECK: Supple, non-tender, no thyromegaly, no masses, no JVD, no bruits. BREAST: Deferred. CHEST: No tenderness, no crepitus, no paradoxical movement, no retractions. LUNGS: Clear, well-ventilated, symmetric, no rales, no wheezing, no rhonchi, no stridor, good breath sounds bilaterally. HEART: Regular rate, regular rhythm, no murmur, no gallops. VASCULAR: No peripheral edema. ABDOMEN: Soft, positive bowel sounds, nondistended, no guarding, nontender, no rebound, no masses no hepatomegaly, no splenomegaly, no Verduzco's sign, no hernias. RECTAL: Deferred. GENITAL: Deferred. NEUROLOGICAL: Normal speech, gross motor function intact, gross sensory function intact. MUSCULOSKELETAL: Neck nontender, full range of motion, back nontender, full range of motion. EXTREMITIES: Nontender, full range of motion. SKIN: Color pink, dry, no turgor, no rash, no lacerations, no abrasions, no contusions. LYMPHATICS: Deferred. Results Laboratory and Microbiology Lab and Micro Result Laboratory Tests Test 11/12/24 11:04 11/12/24 11:07 White Blood Count 7.4 K/uL (4.8-10.8) Red Blood Count 4.46 MIL/uL (4.00-5.50) Hemoglobin 13.9 g/dL (12.0-16.0) Hematocrit 41.7 % (36-48) Mean Corpuscular Volume 93.5 fL (79-99) Mean Corpuscular Hemoglobin 31.2 pg (27.0-33.0) Mean Corpuscular Hemoglobin Concent 33.3 g/dL (32.0-36.0) Red Cell Distribution Width 12.2 % (11.0-15.5) Platelet Count 295 K/uL (130-400) Mean Platelet Volume 10.1 fL (7.5-10.5) Immature Granulocyte % (Auto) 0.3 % (0-1) Neutrophils (%) (Auto) 56.0 % (40.0-77.0) Lymphocytes (%) (Auto) 28.8 % (21.0-51.0) Monocytes (%) (Auto) 8.7 % (3.0-13.0) Eosinophils (%) (Auto) 5.4 % (0.0-8.0) Basophils (%) (Auto) 0.8 % (0.0-5.0) Neutrophils # (Auto) 4.1 K/uL (1.8-7.7) Lymphocytes # (Auto) 2.1 K/uL (1.0-4.8) Monocytes # (Auto) 0.6 K/uL (0.1-1.0) Eosinophils # (Auto) 0.40 K/uL (0.00-0.70) Basophils # (Auto) 0.06 K/uL (0.00-0.20) Absolute Immature Granulocyte (auto 0.02 K/uL (0-1) Nucleated Red Blood Cells 0.0 % (0.0-0.19) Sodium Level 141 mmol/L (136-145) Potassium Level 4.5 mmol/L (3.5-5.1) Chloride Level 105 mmol/L (101-111) Carbon Dioxide Level 30 mmol/L (21-32) Blood Urea Nitrogen 15 mg/dL (7-18) Creatinine 0.6 mg/dL (0.5-1.0) Glomerular Filtration Rate Calc 101 mL/min (>90) Random Glucose 95 mg/dL (70-105) Total Calcium 8.9 mg/dL (8.5-10.1) Total Bilirubin 0.3 mg/dL (0.2-1.0) Direct Bilirubin 0.1 mg/dL (0.0-0.3) Aspartate Amino Transf (AST/SGOT) 19 U/L (10-37) Alanine Aminotransferase (ALT/SGPT) 21 U/L (12-78) Alkaline Phosphatase 86 U/L (50-136) Total Creatine Kinase 49 U/L (21-232) Troponin I High Sensitivity 4.1 ng/L (4-50) Total Protein 7.5 g/dL (6.0-8.3) Albumin 3.7 g/dL (3.5-5.0) Lipase 36 U/L (16-77) Urine Color YELLOW (YELLOW) Urine Appearance CLEAR (CLEAR) Urine pH 6.0 (5.0-8.0) Urine Specific [place] 1.027 (1.001-1.031) Urine Protein NEGATIVE mg/dL (NEGATIVE) Urine Glucose (UA) NEGATIVE mg/dL (NEGATIVE) Urine Ketones NEGATIVE mg/dL (NEGATIVE) Urine Occult Blood NEGATIVE (NEGATIVE) Urine Nitrate NEGATIVE (NEGATIVE) Urine Bilirubin NEGATIVE mg/dL (NEGATIVE) Urine Urobilinogen 2.0 mg/dL (0.2-1.0) H Urine Leukocyte Esterase NEGATIVE Ross/uL Urine RBC 2-5 /HPF (0-1) H Urine WBC 2-5 /HPF (0-1) H Urine Squamous Epithelial Cells MOD /HPF (0-2) Urine Bacteria None /HPF (None Seen) MDM CC: Headache and hypertension Historian: Patient Comorbidities: Hypertension, dyslipidemia, hypothyroidism, gastric bypass Limitations by social determinants of health: None Differential diagnosis: Hypertension, dehydration, biliary disease, surgical pathology, infection, electrolyte abnormality, other. Vital signs: Patient did have episode of hypertension 166/72 otherwise the vital signs are stable. Improved in the emergency department without treatment. EKG: Sinus rhythm rate of 64 left axis deviation good R-wave progression inter vals are stable no STEMI. Independently interpreted by me. Chest x-ray: No cardiomegaly pleural effusions or focal infiltrates Labs (independently ordered and interpreted by me): CBC is normal, electrolytes normal, liver enzymes normal, CK and troponin normal, lipase is normal, urinalysis unremarkable CT head (independently ordered and interpreted by me): No brain bleeds major abnormalities Treatment in ED: 1 L lactated Ringer's, meclizine, Zofran, Toradol Re-evaluation: Improved symptoms. Asymptomatic. Vital signs has been stable Patient has no signs of stroke, infection, GI pathology, dehydration, or any other life threats. Patient appears very stable. Say asymptomatic. Patient was concerned about her blood pressure which has been stable here. We will recommend she follows up with the PCP. ED Course Orders Procedure Category Date Status Time Cardiac Panel LAB 11/12/24 Complete 11:00 Cbc With Differential LAB 11/12/24 Complete 11:00 Basic Metabolic Panel LAB 11/12/24 Complete 11:00 Urinalysis Profile LAB 11/12/24 Complete 11:00 12 Lead Ekg Tracing- EKG 11/12/24 Resulted Technical 11:00 Lipase LAB 11/12/24 Complete 11:19 Hepatic Function Panel LAB 11/12/24 Complete 11:19 Chest 1vw RAD 11/12/24 Resulted 11:19 Ct Head/Brain W/O CT 11/12/24 Resulted Contrast 11:19 Lactated Ringers PHA 11/12/24 Complete 1000ml (Lactated 11:30 Meclizine Hcl 25 Mg PHA 11/12/24 Complete (Antivert 25 Mg) 11:30 Ondansetron 4mg Inj PHA 11/12/24 Complete (Zofran 4mg Inj) 11:30 Ketorolac PHA 11/12/24 Complete Tromethamine 15mg/Ml 11:30 Current Medications Medications (Trade) Dose Ordered Sig/Amanda Route PRN Reason Start Time Stop Time Status Last Admin Dose Admin Ketorolac Tromethamine (toRADol) 15 mg ONCE ONCE IV 11/12/24 11:30 11/12/24 11:31 DC 11/12/24 11:30 Lactated Ringer's 1,000 ml @ 0 mls/hr ONCE ONCE IV 11/12/24 11:30 11/12/24 11:31 DC 11/12/24 11:31 Meclizine HCl (ANTIvert 25 mg) 25 mg ONCE ONCE PO 11/12/24 11:30 11/12/24 11:31 DC 11/12/24 11:30 Ondansetron HCl (zoFRAN 4MG INJ) 4 mg ONCE ONCE IVP 11/12/24 11:30 11/12/24 11:31 DC 11/12/24 11:30 Vital Signs Date Time Temp Pulse Resp B/P (MAP) Pulse Ox O2 Delivery O2 Flow Rate FiO2 11/12/24 12:29 97.5 55 15 156/72 100 Room Air* 0 21 11/12/24 11:17 98.1 67 13 147/67 100 Room Air* 0 21 11/12/24 10:54 97.9 67 16 128/69 97 Room Air DX & DISP Disposition: Discharge Departure Impression: Primary Impression: Headache Additional Impression: Hypertension Condition: Stable Scripts Butalb/Acetaminophen/Caffeine (Fioricet) 50 Mg-325 Mg-40 Mg Tab 1 TAB PO QID PRN for headache for 10 Days, #30 TAB Prov: YOUSIF DIAMOND DO 11/12/24 Additional Instructions: There are no major abnormalities with the your workup here today. Your vital signs has been stable here in the ER. Please continue taking your home blood pressure medication. Drink plenty of liquids. Dehydration may cause your symptoms. You received IV fluids here in the ER. Your EKG is stable. Your chest x-ray is normal. The CT scan of your brain is unremarkable. Your blood work (CBC with differential, metabolic panel, lipase, liver function, cardiac enzymes, urinalysis) is unremarkable. I have prescribed Fioricet to use as needed for headaches. Please follow up with the primary doctor this week if you continue with symptoms. Referrals: ROYA WALDRON MD (PCP) YOUSIF DIAMOND DO Nov 12, 2024 13:45
[2024-11-12 13:47] VITALS: BP 165/74; PULSE 55; RESP 15; TEMP 97.8; O2SAT 99
--- NOTE | 2024-11-12 14:05 | NUR ---
DC PATIENT WAS DC'D BY DR DARA Singh DC'D PATIENTS IV WITH CATH STILL INTACT AND APPLIED 2X2 GAUZE WITH COBAN , I EXPLAINED TO PATIENT TO FOLLOW UP WITH PCP, PROVIDED INFO BASED ON DIAGNOSIS AND ANSWERED ANY FOLLOW UP QUESTIONS PATIENT AMBULATED OUT OF ED, NO COMPLICATIONS
== END 2024-11-12 14:25 | disposition home or self-care (01) ==
LOC: EDH 10:52
DX: R51.9 Headache, unspecified (principal); I10 Essential (primary) hypertension; E03.9 Hypothyroidism, unspecified; E78.00 Pure hypercholesterolemia, unspecified; Z90.49 Acquired absence of other specified parts of digestive tract; Z98.51 Tubal ligation status; Z98.84 Bariatric surgery status
CPT/HCPCS: 99285; 96374; 70450; 96361; 71045; 96375; 82550; 80076; 84484; 80048; 83690; 85025; 81001; 36415; 93005; 81003; J1885; J7120; J2405